=== PATIENT | female | born 1995 | race Caucasian/White ===

== ENCOUNTER → 2017-08-06 17:59 | Outpatient (CLI) | payer OTHER, MEDICAID, SELFPAY ==
--- NOTE | 2017-08-06 18:03 | DI.RAD.S_ITS ---
PROCEDURE: XR TOE LT MIN 2V INDICATIONS: toe pain TECHNIQUE: 3 views of the left fifth toe(s) acquired. COMPARISON: None. FINDINGS: Bones: No fractures or dislocations. No suspicious bony lesions. Soft tissues: No suspicious soft tissue densities. IMPRESSION: No acute fracture. No osseous lesion. If clinical suspicion and/or symptoms persist, further assessment with repeat plainfilms, or advanced imaging (e.g., CT, MRI, or bone scan) may be helpful for further assessment. Dictated by: Cale Sanchez M.D. on 08/06/2017 at 18:31 Approved by: Cale Sanchez M.D. on 08/06/2017 at 18:32
== END ==
PROVIDERS: Family Provider Physician Assistant; PCP Physician Assistant; Visit Provider Physician Assistant
DX: M79.675 Pain in left toe(s) (principal)
CPT/HCPCS: 73660

== ENCOUNTER → 2018-04-16 10:47 | Outpatient (CLI) | payer OTHER, MEDICAID, SELFPAY ==
[2018-04-16 12:56] LABS: Follicle Stimulating Hormone 6.12 mIU/mL; Luteinizing Hormone 6.32 mIU/mL
[2018-04-16 13:11] LABS: TSH w/ Reflex to FT4 0.55 uIU/mL (0.47-4.68)
[2018-04-19 19:26] LABS: Estradiol 39 pg/mL; Testosterone Free 3.8 pg/mL (0.1-6.4); Testosterone Total 30 ng/dL (2-45)
== END ==
PROVIDERS: PCP Physician Assistant
DX: E28.2 Polycystic ovarian syndrome (principal)
CPT/HCPCS: 36415; 82157; 82672; 83001; 83002; 84402; 84403; 84443

== ENCOUNTER → 2019-08-20 14:21 | Outpatient (CLI) | payer OTHER, MEDICAID, SELFPAY ==
[2019-08-24 10:41] LABS: COVID19 Sendout Not Detected (Not Detected)
== END ==
PROVIDERS: PCP Family Medicine; Visit Provider Physician Assistant
DX: Z11.59 Encounter for screening for other viral diseases (principal)
CPT/HCPCS: 87635

== ENCOUNTER → 2019-09-24 10:32 | Outpatient (CLI) | payer OTHER, MEDICAID, SELFPAY ==
[2019-09-24 13:21] LABS: Free T4, Direct Thyroxine 1.22 ng/dL (0.78-2.19)
[2019-09-24 13:35] LABS: Thyroid Stimulating Hormone 0.466 uIU/mL (0.47-4.68)
[2019-09-24 16:46] LABS: Luteinizing Hormone 6.58 mIU/mL
[2019-09-24 17:02] LABS: Estradiol, Total 44.1 pg/mL
[2019-09-29 13:11] LABS: Testosterone Free 0.31 ng/dL (0.10-0.85); Testosterone Total 20.8 ng/dL (10.0-55.0)
== END ==
PROVIDERS: PCP Family Medicine; Referring Provider Family Medicine; Visit Provider Family Medicine
DX: E23.0 Hypopituitarism (principal); E28.2 Polycystic ovarian syndrome; L70.0 Acne vulgaris
CPT/HCPCS: 36415; 82670; 83001; 83002; 84402; 84403; 84439; 84443

== ENCOUNTER → 2019-10-17 10:43 | Outpatient (CLI) | payer OTHER, MEDICAID, SELFPAY ==
--- NOTE | 2019-10-17 10:44 | DI.US.S_ITS ---
PROCEDURE: US PELVIC COMPLETE INDICATIONS: Dysmenorrhea, assess for PCOS TECHNIQUE: Real-time scanning was performed of the pelvic organs, with image documentation. Additional endovaginal scanning was necessary due to incomplete visualization of the adnexal and endometrial structures by transabdominal scanning. COMPARISON: [facility], , US PELVIC COMPLETE, 04/16/2018, 10:32. FINDINGS: Transabdominal scanning: Limited scanning through the kidneys shows no hydronephrosis. No pathologic free abdominal or pelvic fluid. Endovaginal scanning: Uterus: Uterus is normal in size at 7.3 x 3.1 x 3.8 cm. The endometrium measures 2.4 mm in combined thickness. Ovaries: The right ovary measures 4.2 x 3.2 x 3.9 cm and demonstrates a simple cyst that measures up to 2.9 cm. The left ovary measures 2.4 x 1.8 x 1 cm. Numerous cystic follicles can be seen involving each ovary, right more numerous than left (estimated to be more than 12 involving each ovary). The ovaries otherwise have a normal sonographic appearance. No adnexal masses are seen. IMPRESSION: Numerous cystic follicles are seen involving each ovary. The imaging appearance is supportive of a diagnosis of polycystic ovarian syndrome. Dictated by: Kiko Candelaria M.D. on 10/17/2019 at 12:28 Transcribed by: ANNA on 10/17/2019 at 12:33 Approved by: Kiko Candelaria M.D. on 10/17/2019 at 14:05
== END ==
PROVIDERS: PCP Family Medicine; Referring Provider Family Medicine; Visit Provider Family Medicine
DX: E28.2 Polycystic ovarian syndrome (principal)
CPT/HCPCS: 76830; 76856

== ENCOUNTER → 2019-12-23 13:51 | Outpatient (CLI) | payer OTHER, MEDICAID, SELFPAY ==
[2019-12-23 15:17] LABS: Hemoglobin A1C% w Est Avg Glu 4.9 % (4.0-6.0)
== END ==
PROVIDERS: PCP Family Medicine; Referring Provider Obstetrics & Gynecology; Visit Provider Obstetrics & Gynecology
DX: E28.2 Polycystic ovarian syndrome (principal)
CPT/HCPCS: 36415; 83036

== ENCOUNTER → 2020-01-17 13:48 | Outpatient (CLI) | payer OTHER, MEDICAID, SELFPAY ==
[2020-01-17 14:32] LABS: COVID19 -Nasal RAPID Negative (Negative)
== END ==
PROVIDERS: PCP Family Medicine; Visit Provider Physician Assistant
DX: Z11.59 Encounter for screening for other viral diseases (principal)
CPT/HCPCS: 87635

== ENCOUNTER → 2020-07-21 08:25 | Outpatient (CLI) | payer OTHER, MEDICAID, SELFPAY ==
[2020-07-21 09:41] LABS: COVID19 -Nasal RAPID Negative (Negative)
== END ==
PROVIDERS: PCP Family Medicine; Visit Provider Physician Assistant
DX: R05 Cough (principal); R06.02 Shortness of breath; R09.89 Other specified symptoms and signs involving the circulatory and respiratory systems
CPT/HCPCS: 87635

== ENCOUNTER → 2021-02-09 11:13 | Outpatient (CLI) | payer OTHER, MEDICAID, SELFPAY ==
[2021-02-13 00:13] LABS: Alder IgE <0.10 kU/L (Class 0); Almond IgE <0.10 kU/L (Class 0); Alternaria alternata IgE <0.10 kU/L (Class 0); Aspergillus fumigatus IgE <0.10 kU/L (Class 0); Cashew Nut IgE <0.10 kU/L (Class 0); Cladosporium herbarum IgE <0.10 kU/L (Class 0); Cockroach IgE <0.10 kU/L (Class 0); Codfish Allergy IgE < 0.10 kU/L (Class 0); D farinae IgE <0.10 kU/L (Class 0); D pteronyssinus IgE <0.10 kU/L (Class 0); Dog Dander IgE <0.10 kU/L (Class 0); Egg White IgE <0.10 kU/L (Class 0); Elm Tree IgE <0.10 kU/L (Class 0); Hazelnut IgE <0.10 kU/L (Class 0); IgE Bermuda Grass <0.10 kU/L (Class 0); IgE Maple Leaf Sycamore <0.10 kU/L (Class 0); IgE Olive Tree <0.10 kU/L (Class 0); IgE Thistle,Russian <0.10 kU/L (Class 0); IgE White Mulberry <0.10 kU/L (Class 0); Milk IgE <0.10 kU/L (Class 0); Mountain Cedar IgE <0.10 kU/L (Class 0); Mouse Urine Proteins IgE <0.10 kU/L (Class 0); Oak Tree IgE <0.10 kU/L (Class 0); Peanut IgE <0.10 kU/L (Class 0); Penicillium chrysogen IgE <0.10 kU/L (Class 0); Pigweed, Common IgE <0.10 kU/L (Class 0); Ragweed, Short <0.10 kU/L (Class 0); Salmon Allergy IgE < 0.10 kU/L (Class 0); Scallop Allergy IgE < 0.10 kU/L (Class 0); Sesame seed Allergy IgE < 0.10 kU/L (Class 0); Shrimp IgE <0.10 kU/L (Class 0); Silver Birch IgE <0.10 kU/L (Class 0); Soybean IgE <0.10 kU/L (Class 0); Tuna Allergy IgE < 0.10 kU/L (Class 0); Walnut IgE <0.10 kU/L (Class 0); Wheat Allergy IgE < 0.10 kU/L (Class 0)
[2021-02-15 13:31] LABS: Cat Dander IgE <0.10
== END ==
PROVIDERS: PCP Family Medicine; Referring Provider Family Medicine; Visit Provider Family Medicine
DX: J06.9 Acute upper respiratory infection, unspecified (principal); L23.9 Allergic contact dermatitis, unspecified cause
CPT/HCPCS: 36415; 82785; 86003

== ENCOUNTER → 2023-05-25 17:33 | Outpatient (CLI) | payer OTHER, SELFPAY ==
[2023-05-25 18:16] LABS: Add Manual Diff / Slide Review NO; Basophils Absolute Auto 100 /uL (0-100); Basophils Percent Auto 0.4 % (0-2); Eosinophils Absolute Auto 100 /uL (0-450); Eosinophils Percent Auto 1.1 % (2-4); Hematocrit 39.8 % (36-46); Hemoglobin 13.7 g/dL (12.0-16.0); Lymphocytes Absolute Auto 2500 /uL (1100-4500); Lymphocytes Percent Auto 21.8 % (25-40); Mean Corpuscular HGB Conc 34.3 % (30-36); Mean Corpuscular Hemoglobin 29.1 PG (26-34); Mean Corpuscular Volume 84.7 fL (80-100); Monocytes Absolute Auto 1000 /uL (0-900); Monocytes Percent Auto 8.4 % (3-14); Neutrophils Absolute Auto 7900 /uL (1500-7000); Neutrophils Percent Auto 68.3 % (50-75); Platelet Count 246 X10^3/uL (150-400); Red Cell Distribution Width 12.8 % (11.6-14.8); White Blood Cell Count 11.5 X10^3/uL (4.5-11.0)
[2023-05-25 18:38] LABS: HEMOLYSIS < 15 (0-50); Hemoglobin A1C% w Est Avg Glu 5.1 % (4.0-6.0); Iron 71 ug/dL (37-170)
[2023-05-25 18:40] LABS: Alanine Aminotransferase 26 IU/L (<35); Albumin 4.5 g/dL (3.5-5.0); Albumin Globulin Ratio 1.5 (1.0-2.8); Alkaline Phosphatase 84 U/L (38-126); Aspartate Aminotransferase 27 IU/L (14-36); BUN Creatinine Ratio 23.1 (6-22); Bilirubin Total 0.4 mg/dL (0.2-1.3); Blood Urea Nitrogen 15 mg/dL (7-17); Calcium 10.1 mg/dL (8.4-10.2); Carbon Dioxide 28 mmol/L (22-32); Chloride 105 mmol/L (98-107); Cholesterol 157 mg/dL (140-199); Estimated Glomerular Filt Rate > 60 mL/min (>60); Glucose 92 mg/dL (70-100); HDL Cholesterol 49 mg/dL (40-60); HEMOLYSIS < 15 (0-50); LDL Cholesterol Calculated 86 mg/dL (<100); Potassium 4.4 mmol/L (3.4-5.1); Sodium 140 mmol/L (137-145); Total Protein 7.5 g/dL (6.3-8.2); Triglycerides 112 mg/dL (35-150)
[2023-05-25 18:49] LABS: Percent Iron Saturation 17 % (15-50); Total Iron Binding Capacity 418 ug/dL (265-497); Transferrin 332 mg/dL (206-381)
[2023-05-25 19:09] LABS: TSH w/ Reflex to FT4 0.73 uIU/mL (0.47-4.68)
[2023-05-25 19:29] LABS: Vitamin B12 367 pg/mL (239-931)
[2023-05-25 20:03] LABS: Progesterone, Total 2.33 ng/mL
[2023-05-31 20:40] LABS: Estrogen 586 pg/mL (.)
== END ==
PROVIDERS: PCP Family Medicine; Referring Provider Family Medicine; Visit Provider Family Medicine
DX: E28.2 Polycystic ovarian syndrome (principal); F90.0 Attention-deficit hyperactivity disorder, predominantly inattentive type; Z97.5 Presence of (intrauterine) contraceptive device
CPT/HCPCS: 36415; 80053; 80061; 82607; 82672; 83036; 83540; 83550; 84144; 84146; 84443; 85025